=== PATIENT | female | born 1980 | race Caucasian/White ===

== ENCOUNTER 2022-05-27 11:05 | Emergency (ER) | payer BC, OTHER ==
[2022-05-27 11:17] VITALS: BP 158/76; PULSE 63; O2SAT 98
[2022-05-27] MEDS ORDERED: Augmentin 875-125 Tablet PO ONE (11:21)
[2022-05-27] MEDS ORDERED: Augmentin 875-125 Tablet ONE (11:22)
--- NOTE | 2022-05-27 11:23 | ERPHSYRPT ---
- History of Present Illness Time Seen by Provider: 05/27/22 11:20 Source: patient Exam Limitations: no limitations Patient Subjective Stated Complaint: Abcess Triage Nursing Assessment: Patient ambulated back to ED and transferred self to bed. Patient A+O x 3. Patient's skin pink, warm and dry. Patient complains of abscess to left eye. Patient states she [facility] Erthythromycin ointment. Patient states the area has gotten bigger and redder. Abscess noted to left eye. Patient complains of left eye pain 7/10. Physician History: Patient is a 42-year-old female presents emergency department for evaluation of a soft tissue infection. Patient was seen at [facility] 3 days ago. Patient was diagnosed with a stye and given erythromycin antibiotic ointment. Patient has a dacryocystitis that requires Augmentin antibiotic. The area of involvement has gotten progressively worse. No change in vision. Patient rates pain 7 out of 10 but declined pain medication as she has oxycodone at home from a previous knee surgery. Pain described as ache that is localized. No radiation. Pain worse with palpation. Pain improved with rest. Patient has not seen an quality control supervisor. Patient is otherwise healthy. She voices no other complaints or concerns at this time. Timing/Duration: day(s) (3 days) Severity: moderate Modifying Factors: Improves With: nothing Associated Symptoms: denies symptoms Allergies/Adverse Reactions: No Known Drug Allergies Allergy (Unverified 05/27/22 11:08) Home Medications: Aspirin EC 325 mg [Ecotrin 325 MG] 1 tab PO DAILY 05/27/22 [History] Hx Influenza Vaccination/Date Given: No Hx Pneumococcal Vaccination/Date Given: No Immunizations Up to Date: Yes Travel Risk - International Travel Have you traveled outside of the country in past 3 weeks: No - Coronavirus Screening Are you exhibiting any of the following symptoms?: No Close contact with a COVID-19 positive Pt in past 14-21 Days: No - Vaccine Status Have you recieved a Covid-19 vaccination: No - Review of Systems Constitutional: No Symptoms, No Fever, No Chills Eyes: No Symptoms Ears, Nose, & Throat: No Symptoms Respiratory: No Symptoms, No Cough, No Dyspnea Cardiac: No Symptoms, No Chest Pain, No Edema, No Syncope Abdominal/Gastrointestinal: No Symptoms, No Abdominal Pain, No Nausea, No Vomiting, No Diarrhea Genitourinary Symptoms: No Symptoms, No Dysuria Musculoskeletal: No Symptoms, No Back Pain, No Neck Pain Skin: No Symptoms, No Rash Neurological: No Symptoms, No Dizziness, No Focal Weakness, No Sensory Changes Psychological: No Symptoms Endocrine: No Symptoms Hematologic/Lymphatic: No Symptoms Immunological/Allergic: No Symptoms All Other Systems: Reviewed and Negative - Past Medical History Neurological History: No Pertinent History ENT History: No Pertinent History Cardiac History: No Pertinent History Respiratory History: No Pertinent History Endocrine Medical History: No Pertinent History Musculoskeletal History: No Pertinent History GI Medical History: Other History: No Pertinent History Psycho-Social History: Anxiety, Depression Female Reproductive Disorders: No Pertinent History Other Medical History: Anemia - Past Surgical History Past Surgical History: Yes Neuro Surgical History: No Pertinent History Cardiac: No Pertinent History Respiratory: No Pertinent History Gastrointestinal: No Pertinent History, Cholecystectomy Musculoskeletal: Orthopedic Surgery Female Surgical History: Hysterectomy Other Surgical History: lab band. Luc feet. right knee - Social History Smoking Status: Never smoker Exposure to second hand smoke: No Drug Use: none Patient Lives Alone: Yes - Female History Hx Last Menstrual Period: hysterectomy Hx Now: No - Nursing Vital Signs Nursing Vital Signs: Initial Vital Signs Temperature 97.5 F 05/27/22 11:10 Pulse Rate 63 05/27/22 11:10 Respiratory Rate 18 05/27/22 11:10 Blood Pressure 158/76 05/27/22 11:10 O2 Sat by Pulse Oximetry 98 05/27/22 11:10 Pain Scale Pain Intensity 7 - Physical Exam General Appearance: no apparent distress, alert Eye Exam: PERRL/EOMI, eyes nml inspection, other (Dacryocystitis left eye.) Ears, Nose, Throat Exam: normal ENT inspection, TMs normal, pharynx normal, moist mucous membranes Neck Exam: normal inspection, non-tender, supple, full range of motion Respiratory Exam: normal breath sounds, lungs clear, airway intact, No respiratory distress Cardiovascular Exam: regular rate/rhythm, normal heart sounds, normal peripheral pulses Gastrointestinal/Abdomen Exam: soft, normal bowel sounds, No tenderness, No mass Back Exam: normal inspection, normal range of motion, No CVA tenderness, No vertebral tenderness Extremity Exam: normal inspection, normal range of motion, pelvis stable Neurologic Exam: alert, oriented x 3, cooperative, normal mood/affect, nml cerebellar function, nml station & gait, sensation nml, No motor deficits Skin Exam: normal color, warm, dry, No rash Lymphatic Exam: No adenopathy SpO2 Interpretation: normal SpO2: 98 O2 Delivery: Room Air - Course Nursing assessment & vital signs reviewed: Yes Ordered Tests: Medication Summary Discontinued Medications Generic Name Dose Route Start Last Admin Trade Name Wilfredq PRN Reason Stop Dose Admin Amoxicillin/Clavulanate Potassium 875 mg 05/27/22 11:21 Amox Tr/Potassium Clavulanate 875 Mg Tablet PO 05/27/22 11:22 STAT ONE - Progress Progress: improved Progress Note: Patient declined pain medication. Patient has a dacryocystitis. Patient given dose of Augmentin in our ED. A prescription for the same was forwarded to patient's pharmacy. We are attempting to establish an appointment with an quality control supervisor for follow-up. Patient to apply warm compress to the area of involvement. Patient agrees to follow-up as planned within 48 hours for evaluation. She voices no other complaints or concerns at this time. Portions of this note were created with voice recognition technology. There may be grammatical, spelling, punctuation or sound alike errors 05/27/22 11:29 Counseled pt/family regarding: diagnosis, need for follow-up - Departure Departure Disposition: Home Clinical Impression: Dacrocystitis Condition: Stable Critical Care Time: No Referrals: DAPHNE MEDINA NP [Primary Care Provider] - Follow up/PCP as directed Additional Instructions: Discharge/Care Plan CYNDI HENLEY was seen on 05/27/22 in the Emergency Room. The patient was counseled regarding Diagnosis,Lab results, Imaging studies, need for follow up and when to return to the Emergency Room. Prescriptions given: Discharge Note I have spoken with the patient and/or caregivers. I have explained the patient's condition, diagnosis and treatment plan based on the information available to me at this time. I have answered the patient's and/or caregiver's questions and addressed any concerns. The patient and/or caregivers have as good understanding of the patient's diagnosis, condition and treatment plan as can be expected at this point. The vital signs have been stable. The patient's condition is stable and appropriate for discharge from the emergency department. The patient will pursue further outpatient evaluation with the primary care physician or other designated or consulting physician as outlined in the discharge instructions. The patient and/or caregivers are agreeable to this plan of care and follow-up instructions have been explained in detail. The patient and/or caregivers have received these instruction. The patient/and or caregivers are aware that any significant change in condition or worsening of symptoms should prompt an immediate return to this or the closest emergency department or call 911. Prescriptions: Amox Tr/Potass Clav. 875 mg [Augmentin 875-125 Tablet] 875 mg PO BID 7 Days #14 tablet
== END 2022-05-27 11:52 | disposition home or self-care (01) ==
LOC: ED 11:05
DX: H04.302 Unspecified dacryocystitis of left lacrimal passage (principal); H57.12 Ocular pain, left eye; Z28.310 Unvaccinated for COVID-19
CPT/HCPCS: 99282; A9270-GY